=== PATIENT | male | born 1995 | race Caucasian/White ===

== ENCOUNTER 2025-09-27 23:45 | Emergency (ER) | payer SELFPAY ==
[2025-09-27 23:46] VITALS: BMI 28.6
[2025-09-28 00:40] VITALS: BP 143/81; PULSE 104; RESP 18; TEMP 36.8; O2SAT 98
--- NOTE | 2025-09-28 00:53 | PD.EDSKIN ---
ED Skin Abcess FB-RME/HPI General Chief complaint: Skin/Abscess/Foreign Body Stated complaint: PUSTULES TO BRADY AND FOOT Time Seen by Provider: 09/28/25 00:40 Arrival date/time: 09/27/25 23:45 RME / HPI RME / HPI narrative: 30-year-old male who states his tdap is up-to-date was seen in an ER yesterday for a burn to his abdomen when he was leaning up against a stove went to an ER and had it dressed and was prescribed Keflex however he has not picked it up yet who presents to this ER now today complaining of a painful rash noted to his left leg and right second toe which have been there for about a week. Patient states he popped his right second toe yesterday and pus came out. Denies trauma, fever, nausea, vomiting, IV drug use. Patient has a past medical history of methamphetamine abuse Related Data Previous Rx's ?Medication ?Instructions ?Recorded mupirocin calcium 2 % topical cream 1 applic topical TID #30 grams 09/28/25 sulfamethoxazole 800 1 tab PO BID #14 tabs 09/28/25 mg-trimethoprim 160 mg tablet (Bactrim DS) Allergies Allergy/AdvReac Type Severity Reaction Status Date / Time No Known Allergies Allergy Verified 09/27/25 23:47 ED Exam Narrative Physical exam: Constitutional: Vital Signs Reviewed. Well appearing. No acute distress. Not toxic appearing. Head: Normocephalic, atraumatic. Eyes: Conjunctiva clear. ENT: Mucous membranes moist. Neck: Trachea midline. Normal range of motion. No nuchal rigidity. Respiratory: Normal effort. No respiratory distress or accessory muscle use. Neuro: Alert and oriented. Speech normal. No focal gross motor or sensory deficits observed. Skin: Warm, dry, normal color. Left lower extremity: 2 cm annular region of induration, tenderness, erythema, warmth noted just proximal to his left ankle with a central scab Right foot: Right second toe with erythema noted to distal phalanx and mild tenderness. Able to flex and extend at PIP and DIP joint. Cap refill less than 2 seconds Psych: Pleasant. Normal affect. Cooperative. Course Quality Measures none Vital Signs Vital signs: Vital Signs Temperature 98.3 F 09/28/25 00:40 Pulse Rate 104 H 09/28/25 00:40 Respiratory Rate 18 09/28/25 00:40 Blood Pressure 143/81 H 09/28/25 00:40 Pulse Oximetry (%) 98 09/28/25 00:40 Oxygen Delivery Method Room Air 09/28/25 00:40 Skin / Abscess / Foreign Body MDM Narrative MDM Narrative:: MDM This patient?s soft tissue infection appears appropriate for outpatient management with close follow-up by a clinician within 24?48 hours. There are no signs of systemic toxicity, and a serious, rapidly progressive infection is unlikely based on presentation and exam. Doubt necrotizing fasciitis given lack of tenderness beyond erythema or crepitus, and doubt lymphangitis given lack of streaking. No focal fluid collection is appreciated to suggest need for incision and drainage. Antibiotics have been initiated, and response will be assessed at follow-up. The patient has been instructed on signs of acute progression and to return immediately if symptoms worsen or change. Patient eloped prior to signing discharge papers. Patient data External records reviewed:: Other (specify) Clinical information provided by:: patient Social determinants that could affect healthcare access:: mental health Patient has the following chronic illnesses:: History of methamphetamine abuse How is presenting disease/condition affected by chronic disease/condition?: exacerbated by Evaluation data The following diagnostics were reviewed and interpreted by me:: other (specify) Lab and/or radiology exams considered but not ordered:: Additional Labs and radiology considered, but not ordered as they were not clinically indicated at this time. Interpretation Summary: None Medications / Prescriptions Medications or Prescriptions considered but not ordered:: I considered prescription management (both outpatient prescriptions AND drug treatment in the ER) and decided that this was necessary and was prescribed as charted. Medication administrations:: None Consultations Consultation(s) initiated? (list below): No Diagnosis Skin/Abscess Differential Diagnosis: cellulitis, insect bites and impetigo Most likely diagnosis given after review of the tests above:: Cellulitis Admission Indicated Admission indicated?: not indicated Admission Request Was there a request for admission?: No Disposition Plan Disposition Plan: Discharge Discharge Attestation Discharge Attestation: The patient and all family members were given an opportunity to ask questions and understood the discharge instructions. Discharge instructions specifically effects, indications for sooner follow up or return to the emergency department, and the expected course of current diagnosis. Patient condition: Stable Discharge Plan Plan Patient Disposition: Elopement Prescriptions/Referrals Prescriptions/Med Rec: New sulfamethoxazole-trimethoprim [Bactrim DS] 800-160 mg tablet 1 tab PO BID Qty: 14 0RF mupirocin calcium 2 % cream 1 applic topical TID Qty: 30 0RF Rx Instructions: also apply intranasally Referrals: No Primary/Family,Physician [Primary Care Provider] - In 1 week Problem List Clinical Impression: Cellulitis Patient/Caregiver Discharge Instructions Print Language: Czech
== END 2025-09-28 00:58 | disposition left against medical advice (07) ==
PROVIDERS: Emergency Provider Emergency Medicine
DX: L03.032 Cellulitis of left toe (principal); L03.031 Cellulitis of right toe; Z53.29 Procedure and treatment not carried out because of patient's decision for other reasons
CPT/HCPCS: 99281